=== PATIENT | male | born 2000 | race Caucasian/White ===

== ENCOUNTER 2020-04-29 00:10 | Emergency (ER) | payer OTHER, SELFPAY ==
[2020-04-29 00:11] VITALS: BP 135/85; PULSE 70; RESP 18; TEMP 36.2; O2SAT 100; BMI 24.4
--- NOTE | 2020-04-29 00:39 | ED.VIS.GEN ---
History of Present Illness Chief Complaint: Ear Problem Informant: Patient, Family Onset: Today Narrative: Patient here with mother concerns for bug in left ear. He woke in with the sound in his ear. Report tried drowning in his ear using a turkey baster, they did not see anything come out. He does not feel any movement currently. Denies any pain. No previous similar symptoms. No allergies. Prior similar symptoms: No Past Medical History - Allergies and Home Meds Allergies/Adverse Reactions: Allergies No Known Allergies Allergy (Verified 04/29/20 00:12) Primary Care Physician: Tan Ramirez MD [Primary Care Provider] - Past Medical History: None Smoking Status: Never smoker Review of Systems General: Denies: Chills, Fever, Sweats Eyes: Denies: Visual changes - bilaterally, Diplopia ENT: Reports: - - Bug in left ear. Denies: Left ear pain, Right ear pain, Rhinorrhea, Sore throat Cardiovascular: Denies: Chest pain, Palpitations Respiratory: Denies: Dyspnea, Cough, Dyspnea on exertion Gastrointestinal: Denies: Abdominal pain, Nausea, Vomiting, Diarrhea, Melena, Hematochezia Genitourinary: Denies: Dysuria, Hematuria, Frequency Musculoskeletal: Denies: Back pain, Extremity Pain Skin: Denies: Rash, Wounds Neurological: Denies: Headache, Weakness, Numbness Physical Exam Vital Signs/Narrative: Vital Signs Temp Pulse Resp BP Pulse Ox 04/29/20 00:11 97.2 F L 70 18 135/85 H 100 Inital Vital Signs reviewed: Yes General: Well nourished, Well developed, No Acute Distress Head: Normocephalic, Atraumatic Eyes: Perrl, EOMI ENT: Moist mucous membranes, No rhinorrhea, - - Right ear: Normal with normal TM. Left ear: Nonmoving insect deep in the ear near the TM obscuring the TM. No blood. Neck: Supple, Nontender Cardiovascular: Regular rate, Regular rhythm, No murmurs Respiratory: No distress, CTA bilaterally, Chest nontender Abdomen: Soft, Nontender, Nondistended, Normal bowel sounds Back: Nontender, Normal Inspection Extremities: Nontender, No edema Skin: Normal color, No rash Neurological: Alert, Oriented x3, Cranial nerves II-XII grossly intact, Normal Strength, Normal Sensation Psychological: Normal affect, Normal Mood Diagnostic/Tx/Re-eval Exam of ear concerns for insect that currently is not alive in the canal. Nursing attempted to flush, I attempted multiple flushes, this is lodged in the external canal. With location, discussed with mother risks would be higher to continue, she understands. He will be given ENT as an outpatient to call tomorrow for removal. All questions were answered. ED Disposition - Plan for ED Patient: Disposition: Home or Assisted Living Diagnosis: Foreign body in left ear, initial encounter Instructions: ED EAR CANAL Foreign Body Referrals: Luis Scott MD [STAFF PHYSICIAN] - 1 Day Kevin Villalobos MD [STAFF PHYSICIAN] - 1 Day Additional Instructions: insect in ear. Call ENT for follow up removal in office.
== END 2020-04-29 01:16 | disposition home or self-care (01) ==
PROVIDERS: Emergency Provider Emergency Medicine; PCP Family Medicine
DX: T16.2XXA Foreign body in left ear, initial encounter (principal); W45.8XXA Other foreign body or object entering through skin, initial encounter; Y93.9 Activity, unspecified; Y92.89 Other specified places as the place of occurrence of the external cause; Y99.9 Unspecified external cause status
CPT/HCPCS: 99282

== ENCOUNTER 2024-02-06 15:02 | Emergency (ER) | payer OTHER, SELFPAY ==
[2024-02-06 15:02] VITALS: BP 120/78; PULSE 87; RESP 14; TEMP 36.2; O2SAT 97
--- NOTE | 2024-02-06 15:58 | RAD_ITS ---
STUDY: X-RAY - LEFT HAND REASON FOR EXAM: Male, 23 years old. hand TECHNIQUE: 3 view(s) of the hand. COMPARISON: None. FINDINGS: Normal radiocarpal articulation. Normal distal radioulnar joint. Normal visualized carpal bones. Normal carpal articulations Normal carpometacarpal articulation of the thumb. Normal second through fifth carpometacarpal joints. Normal metacarpi. Normal metacarpophalangeal joint of the thumb. Normal interphalangeal joint of the thumb. Normal proximal and distal phalanges of the thumb. Normal metacarpophalangeal joints of the second through fifth fingers. Normal proximal and distal interphalangeal joints of the second through fifth fingers. Normal phalanges of the second through fifth fingers. The soft tissue structures are unremarkable. RAD/Hand Min 3 Views IMPRESSION: Normal x-ray examination of the hand. Electronically Signed: Kaiden Samuel MD at 16:22 EDT ,
[2024-02-06] MEDS: Diphth,Pertuss(Acell),Tet Vac 0.5 ML Vial IM (16:07)
[2024-02-06] MEDS: Lidocaine 1% (20 ml mdv) 20 ML Vial INFILT (16:08)
--- NOTE | 2024-02-06 16:28 | EX.ED.GENINJ ---
HPI History of Present Illness Chief Complaint: Laceration Narrative Narrative: Patient is a 23-year-old male with no significant medical history who is tetanus vaccination is unknown who presents to the emergency department after a laceration to the left third finger. Patient is he works with sheet metal, when a piece of sheet metal came down slicing the ulnar aspect of the middle finger. Patient states that he started having numbness tingling, he thought he was having trouble moving it. [facility] Medical History no medical history Home Medications ?Medication ?Instructions ?Recorded ?Last Taken ?Type multivitamin with folic acid 400 1 tab PO DAILY 01/05/14 Unknown History mcg tablet (Thera) Allergy/AdvReac Type Severity Reaction Status Date / Time No Known Allergies Allergy Verified 02/06/24 15:02 Social History Smoking Status: Never smoker ROS ROS ED ROS Narrative Constitutional: Negative for fever, chills, weight loss, weakness Eyes: Negative for vision loss, vision change, double vision ENT: Negative for any sore throat, ear pain, congestion Cardiovascular: Negative for any chest pain, tightness, palpitations Respiratory: Negative for any cough, sputum production, hemoptysis, dyspnea, dyspnea on exertion, orthopnea Gastrointestinal: Negative for any abdominal pain, nausea, vomiting, diarrhea, constipation, blood in stool, blood in vomit : Negative for any urinary frequency, dysuria, retention, blood in urine Muscle skeletal: Negative for any neck pain, back pain Neurological: Negative for any headache, syncope, dizziness Skin: Negative for any rashes, itching, abrasions positive for laceration to the left third finger Psychiatric: Negative for any depression, anxiety, stress, suicidal ideation, homicidal ideation Hematologic: Negative for any excessive bruising, easy bleeding EXAM Physical Exam Narrative Exam Narrative: Vital signs reviewed. HEET: Head normocephalic atraumatic, TMs clear bilaterally. Posterior pharynx is clear, moist mucous membranes. Nares clear bilaterally. Neck: Supple with no lymphadenopathy or tenderness. No signs of meningismus. Cardiac: Regular rate and rhythm no murmurs gallops or rubs, equal peripheral pulses bilaterally. Respiratory: Lungs clear to auscultation bilaterally. No chest tenderness. Abdomen: Soft, nontender, nondistended. No abdominal bruit or pulsatile masses. No hepatosplenomegaly Extremities: No peripheral edema, no signs of gross trauma or deformity. Active full range of motion of all extremities. Patient has a 2 cm laceration to the ulnar aspect of the third finger. This will require sutures. Patient is able to flex and extend. Patient does have some numbness and tingling I do believe this is secondary to nerve injury. Bleeding is controlled. No evidence of any open fracture. Neuro: Cranial nerves II through XII intact, no focal neurological deficits. Skin: Clean dry and intact with no rash, purpura, petechiae, vesicles or pustules. Backs/flank: No CVA tenderness, no midline spinal tenderness, no deformity. Psych: Normal mood and affect. No SI, HI or acute psychosis. Const Vital Signs: 02/06/24 15:02 Temperature 97.2 F L Temperature Source Temporal Pulse Rate 87 Respiratory Rate 14 Blood Pressure 120/78 Blood Pressure Mean 92 Pulse Ox 97 Oxygen Delivery Method Room Air MDM MDM Radiography Diagnostic Testing: Clinical Impression(s) from Imaging Studies Hand X-Ray 02/06/24 15:58 IMPRESSION: Normal x-ray examination of the hand. Electronically Signed: Kaiden Samuel MD at 16:22 EDT , Treatment and Re-Evaluation Narrative: Differential diagnosis includes however is not limited to: Tendon involvement, open fracture, simple laceration Patient appears to be in no obvious distress, vital signs are stable. Presenting emerged department with a left third finger laceration. This area was anesthetized, I was able to use lidocaine 1%. Irrigated copiously with 200 cc normal saline. I was able to place 5 simple sutures of 5-0 Ethilon. Patient tolerated well. Patient be placed in a finger splint with a dressing. He will leave the finger splint on for 1 week. He will change the dressings daily. He instructed to have these removed in 10 days. All questions answered stable for discharge. Instructed return for any worsening redness, infectious-like symptoms. Discharge Plan Triage Chief Complaint: Laceration ED Midlevel Provider: David Pompa ED Provider: Anay Sharma Dx/Rx/DC Orders Clinical Impression: Laceration of left middle finger w/o foreign body w/o damage to nail Instructions: ED Laceration Extremity Prescriptions: No Action multivitamin with folic acid [Thera] 1 TABLET tablet 1 tab PO DAILY Primary Care Provider: Care Physician,No Primary Referrals: Care Physician,No Primary [Primary Care Provider] - [facility] [Non-Staff] - Print Language: Slovak Disposition Disposition: Home, Self Care
== END 2024-02-06 17:12 | disposition home or self-care (01) ==
PROVIDERS: Emergency Provider Emergency Medicine; Visit Provider Emergency Medicine
DX: S61.213A Laceration without foreign body of left middle finger without damage to nail, initial encounter (principal); Z23 Encounter for immunization; W26.8XXA Contact with other sharp object(s), not elsewhere classified, initial encounter
CPT/HCPCS: 12001; 73130; 90471; 90715; 99284